=== PATIENT | female | born 1965 | race Caucasian/White ===

== ENCOUNTER 2024-07-20 07:18 | Outpatient (OUT) | payer BC, SELFPAY ==
[2024-07-20 07:50] LABS: Basophils Percent Auto 0.4 % (0.2-2.0); Eosinophils Absolute Auto 0.2 10^3/uL (0.0-0.7); Hematocrit 39.5 % (36.0-48.0); Hemoglobin 13.1 g/dL (12.0-16.0); Immature Granulocytes Abs Auto 0.02 10^3/uL (0.00-0.03); Immature Granulocytes Pct Auto 0.3 % (0.0-0.5); Lymphocytes Percent Auto 44.3 % (20.5-60.0); Mean Corpuscular HGB Conc 33.2 g/dL (29.9-35.2); Mean Corpuscular Hemoglobin 28.4 pg (26.7-34.0); Mean Corpuscular Volume 85.7 fL (81.0-99.0); Mean Platelet Volume 10.7 fL (9.5-13.5); Monocytes Absolute Auto 0.7 10^3/uL (0.3-0.8); Monocytes Percent Auto 10.7 % (1.7-12.0); Neutrophils Absolute Auto 2.8 10^3/uL (1.4-6.5); Neutrophils Percent Auto 41.3 % (43.0-75.0); Platelet Count 273 10^3/uL (150-450); Red Blood Count 4.61 10^6/uL (4.20-5.40); White Blood Count 6.8 10^3/uL (4.0-11.0)
[2024-07-20 08:59] LABS: Alanine Aminotransferase 26 U/L (14-59); Albumin Level 3.7 g/dL (3.4-5.0); Alkaline Phosphatase 101 U/L (46-116); Anion Gap 13.9; Aspartate Amino Transferase 16 U/L (15-37); BUN Creatinine Ratio 18.6; Bilirubin Total 0.9 mg/dL (0.2-1.0); Carbon Dioxide 26.2 mmol/L (21.0-32.0); Chloride 106 mmol/L (98-107); Cholesterol 231 mg/dL (<=200); Estimated GFR (African America >60 (>=60 mL/min/1.73m^2); Estimated GFR (Non-African Ame >60 (>=60 mL/min/1.73m^2); Globulin 3.8 g/dL; Glucose 104 mg/dL (74-106); HDL Cholesterol 58 mg/dL (40-60); Potassium 4.1 mmol/L (3.5-5.1); Sodium 142 mmol/L (136-145); Thyroid Stimulating Hormone 2.234 uIU/mL (0.358-3.740); Total Protein 7.5 g/dL (6.4-8.2); Triglycerides 59 mg/dL (<=150); VLDL CHOLESTEROL 11.8 mg/dL
== END 2024-07-20 07:19 | disposition home or self-care (01) ==
LOC: LAB 07:24
PROVIDERS: PCP Family Medicine; Visit Provider Family Medicine
DX: Z00.00 Encounter for general adult medical examination without abnormal findings (principal)
CPT/HCPCS: 36415; 80053; 80061; 84443; 85025

== ENCOUNTER 2024-08-08 16:25 | Outpatient (OUT) | payer BC, SELFPAY ==
--- NOTE | 2024-08-08 16:28 | MM_ITS ---
Patient Name: LUIS ANTONIO FERGUSON MR#: [id number] : 1965 Exam Date: 08/08/2024 Ordering Doctor: DR Thalia Alford M.D. RADIOLOGY REPORT PROCEDURE: MM TOMOSYNTHESIS SCREENING BI COMPARISON: MM TOMOSYNTHESIS SCREENING BI, 10/05/2019. MG MAMM SCREEN HOMERO W CAD, 06/20/2017. MG MAMM HOMERO SCRN W CAD DIG, 06/09/2015. INDICATIONS: ENCOUNTER FOR SCREENING MAMMOGRAM Z12.31 Calculator Name NCI Breast Cancer Risk Assessment Tool 5 Year Breast Cancer Risk 1.00% Lifetime Breast Cancer Risk 5.50% Personal Breast Cancer No Personal Ovarian Cancer No Treatments None Family Cancers Grandmother-maternal with breast cancer at age 55; Grandfather-paternal with lung cancer at age 60. LOCATION: [facility] BREAST COMPOSITION: There are scattered areas of fibroglandular density. FINDINGS: DIAGNOSTIC CATEGORY 1--NEGATIVE. RIGHT BREAST: No significant suspicious finding. No significant change has occurred. LEFT BREAST: No significant suspicious finding. No significant change has occurred. RECOMMENDATIONS: ROUTINE MAMMOGRAM AND CLINICAL EVALUATION IN 12 MONTHS. PLEASE NOTE: A NORMAL MAMMOGRAM DOES NOT EXCLUDE THE POSSIBILITY OF BREAST CANCER. A CLINICALLY SUSPICIOUS PALPABLE LUMP SHOULD BE BIOPSIED. Dictated by: Ameya Mistry M.D. on 08/09/2024 at 15:14 Approved by: Ameya Mistry M.D. on 08/09/2024 at 15:17
--- OUTSIDE RECORDS SUMMARY | 2024-08-08 16:33 | XMS_ITS | CCD ---
Author Organization [facility] Care Team Providers [facility] [employer] Name Role Phone BAKER, AURE A Unavailable Unavailable BAKER, AURE A Unavailable Unavailable BAKER, AURE A Unavailable Unavailable BAKER, AURE A Unavailable Unavailable AlfordAdrienia Unavailable Allergies Allergy Classification Reported Allergen(s) Allergy Type Date of Onset Reaction(s) Facility (1 source) peppermint allergenic extract [facility] Other (1 source) Shellfish Propensity to adverse reactions [facility] Other Medications Current Medications Medication Drug Class(es) Dates Sig (Normalized) Sig (Original) [id number] 200 actuat albuterol 0.09 mg/actuat metered dose inhaler (1 source) beta2-Adrenergic Agonist take 1 puff(s) by inhalation every four hours as needed Albuterol Sulfate HFA 108 (90 Base) MCG/ACT 1 puff as needed Inhalation every 4 hrs Active cetirizine hydrochloride 10 mg oral tablet (1 source) Histamine-1 Receptor Antagonist take 1 tablet by mouth once daily ZyrTEC Allergy 10 MG 1 tablet Orally Once a day Active Tacrolimus (1 source) Calcineurin Inhibitor Immunosuppressant Problems Problem Classification Problem Date Documented Da te Episodic/Chronic Asthma (1 source) Exacerbation of asthma; Translations: [Unspecified asthma, uncomplicated] Chronic Other upper respiratory disease (1 source) Seasonal allergy; Translations: [Other seasonal allergic rhinitis] Chronic Otitis media and related conditions (1 source) Other specified disorders of Eustachian tube, bilateral Episodic Results Test Name Value Interpretation Reference Range Facil ity MG MAMM SCREEN HOMERO W CADon 1 08-20-2016 MG MAMM SCREEN HOMERO W CAD [address] [place] [address] Patient: LUIS ANTONIO FERGUSON Exam Date: 06/20/2017DOB: 1965 Gender:F : DR AURE BAKER . Admission #: [id number] : Order #: [id number] HERE TO VIEW EXAM RADIOLOGY REPORT PROCEDURE: MAMMOGRAM BILATERAL SCREENING DIGITAL WITH COMPUTER AIDED DETECTION COMPARISON: MAMMO HOMERO SCREEN W CAD DIG, 09/19/2012. MAMMO SCREEN DIG HOMERO, 09/02/2011. DIGITIZED_MAMMO, 06/08/2009. MG MAMM HOMERO SCRN W CAD DIG, 06/09/2015. INDICATIONS: Screening mammogram Calculator Name NCI Breast Cancer Risk Assessment Tool 5 Year Breast Cancer Risk 0.80%Lifetime Breast Cancer Risk 6.30%Personal Breast Cancer NoPersonal Ovarian Cancer NoTreatments NoneFamily Cancers Grandmother-maternal with breast cancer at age 55; Grandfather-paternal with lung cancer at age 60. LOCATION: [facility] BREAST COMPOSITION: Scattered fibroglandular densities (25-50% glandular). FINDINGS: DIAGNOSTIC CATEGORY 1--NEGATIVE ASSESSMENT. RIGHT BREAST: No significant suspicious finding. No significant change has occurred. LEFT BREAST: No significant suspicious finding. No significant change has occurred. RECOMMENDATIONS: ROUTINE MAMMOGRAM AND CLINICAL EVALUATION. PLEASE NOTE: A NORMAL MAMMOGRAM DOES NOT EXCLUDE THE POSSIBILITY OF BREAST CANCER. A CLINICALLY SUSPICIOUS PALPABLE LUMP SHOULD BE BIOPSIED. Dictated by: Ameya Mistry MD on 06/21/2017 at 08:13 Approved by: Ameya Mistry MD on 06/21/2017 at 08:16 Normal [facility] Vital Signs Date Time Vital Sign Value Performing Clinician Facility 12-27-2022 15:30-0400 Body height 157.48 cm Thalia Alford Other [facility] Other 12-27-2022 15:30-0400 Body mass index (BMI) [Ratio] 29.81 kg/m2 Thalia Alford Other [facility] Other 12-27-2022 15:30-0400 Body weight 73.94 kg Thalia Alford Other [facility] Other 12-27-2022 15:30-0400 Diastolic blood pressure 79 mm[Hg] Thalia Rocío Other [facility] Other 12-27-2022 15:30-0400 Systolic blood pressure 122 mm[Hg] Thalia Rocío Other [facility] Other Encounters Encounter Date Encounter Type Care Provider Facility Start: 12-27-2022 End: 12-27-2022 ambulatory Thalia Rocío Other [facility] Other Start: 12-27-2022 Office outpatient vi sit 15 minutes Thalia Alford [facility] Start: 06-20-2017 End: 06-21-2017 Ambulatory AURE BAKER Facility: Payers Date Payer Category Payer Unknown [id number] Social History Date Type Detail Facility Unknown if ever smoked [facility] Other Sex Assigned At Sex Assigned At Bir th [facility] Other Evaluation note 12-27-2022 Note Date & Type Note Facility 12-27-2022 Evaluation note Encounter Date Diagnosis Assessment Notes November, Eustachian tube dysfunction, bilateral (ICD-10 - H69.83) Discussed nasocort for several days and then afrin prior to the flight. Discussed seasonal allergies [facility] Other History general Narrative - Reported Note Date & Type Note Facility History general Narrative - Reported Type Medical History seasonal allergies Medical History Acute asthma Medical History Seasonal allergies Surgical History partial hysterectomy 2016 Surgical History C section 1998 Surgical History bladder suspension, unspecified 2016 Hospitalization History see surgical Hx Hospitalization History see surgical Hx [facility] Other Summary Purpose Family History No Family History Records Found Advance Directives No Advanced Directives Records Found Additional Source Comments INFORMATION SOURCE (unrecogn ized section and content) DATE CREATED AUTHOR 01/23/2018 [facility] REASON FOR VISIT (unrecogniz ed section and content) EARS HURT FOR RECORDS PERTAINING TO PATIENTS WHO ARE OR HAVE BEEN ENROLLED IN A CHEMICAL DEPENDENCY/SUBSTANCEABUSE PROGRAM, SOME INFORMATION MAY BE OMITTED. This clinical summary was aggregated from multiple sources. Caution should be exercised in using it in the provision of clinical care. This summary normalizes information from multiple sources, and as a consequence, information in this document may materially change the coding, format and clinical context of patient data. In addition, data may be omitted in some cases. CLINICAL DECISIONS SHOULD BE BASED ON THE PRIMARY CLINICAL RECORDS. [facility] [employer] [facility]. provides no warranty or guarantee of the accuracy or completeness of information in this document.
== END 2024-08-08 16:26 | disposition home or self-care (01) ==
LOC: MAMMO 16:25
PROVIDERS: PCP Family Medicine; Visit Provider Family Medicine
DX: Z12.31 Encounter for screening mammogram for malignant neoplasm of breast (principal); Z80.3 Family history of malignant neoplasm of breast; Z80.1 Family history of malignant neoplasm of trachea, bronchus and lung
CPT/HCPCS: 77063; 77067